=== PATIENT | female | born 1985 | race Hispanic/Latino ===

== ENCOUNTER → 2018-02-22 15:08 | Outpatient (CLI) | payer SELFPAY ==
--- NOTE | 2018-02-22 15:18 | RAD_ITS ---
STUDY: X-RAY - RIGHT SHOULDER REASON FOR EXAM: Female, 32 years old. Pain. TECHNIQUE: 4 view(s) of the shoulder. COMPARISON: None. FINDINGS: Normal glenohumeral articulation. Normal acromioclavicular joint. Normal acromion. Normal humeral head and visualized proximal humerus. The soft tissue structures are unremarkable. There is no demonstrated fracture. Normal visualized pulmonary apex. RAD/Shoulder min 2 Views IMPRESSION: Normal x-ray examination of the shoulder. Electronically Signed: Isaac Benedict MD at 23:49 EDT , Service support ,
== END ==
PROVIDERS: Referring Provider Physician Assistant; Visit Provider Physician Assistant
DX: M25.511 Pain in right shoulder (principal)
CPT/HCPCS: 73030

== ENCOUNTER → 2018-03-01 16:13 | Outpatient (CLI) | payer SELFPAY ==
--- NOTE | 2018-03-01 16:23 | MRI_ITS ---
STUDY: MRI RIGHT SHOULDER REASON FOR EXAM: Female, 32 years old. Right shoulder pain. Volleyball injury. Limited range of motion TECHNIQUE: Standardized fat and water weighted pulse sequences were obtained in all 3 orthogonal planes. COMPARISON: February 22, 2018 x-ray FINDINGS: Normal supraspinatus tendon. Normal infraspinatus tendon. Normal subscapularis tendon. Normal teres minor tendon. Normal supraspinatus muscle. Normal infraspinatus muscle. Normal subscapularis muscle. Normal teres minor muscle. Normal glenohumeral articulation. Normal humeral head and visualized proximal humerus. Normal biceps labral complex. Normal intracapsular long biceps tendon. Normal labrum. Normal capsulo- ligamentous complex. Normal rotator interval. There is mild osteoarthritis of the acromioclavicular articulation. There is a Type II morphology (curved) acromion, with a neutral orientation. There is mild fluid distention of the subacromial bursa, consistent with mild subacromial-subdeltoid bursitis. Normal visualized coracohumeral and coracoacromial ligaments. Normal quadrilateral space. Normal axillary space. Normal deltoid muscle. Normal trapezius muscle. MRI/Upper Ext Joint Only(Routine) IMPRESSION: No rotator cuff tear or tear of the labrum. Subacromial subdeltoid bursitis. Electronically Signed: Jerald Sanchez MD at 18:54 EDT , Service support ,
== END ==
PROVIDERS: Referring Provider Physician Assistant; Visit Provider Physician Assistant
DX: S40.011A Contusion of right shoulder, initial encounter (principal); X58.XXXA Exposure to other specified factors, initial encounter; Y93.9 Activity, unspecified; Y92.9 Unspecified place or not applicable; Y99.9 Unspecified external cause status
CPT/HCPCS: 73221

== ENCOUNTER → 2019-08-08 12:54 | Outpatient (CLI) | payer OTHER, SELFPAY ==
[2019-08-08 11:00] VITALS: BMI 26.1
--- NOTE | 2019-08-08 12:57 | RAD_ITS ---
STUDY: X-RAY - RIGHT FOOT CLINICAL: Female, 34 years old. right hallux deformity -- pain 1st toe TECHNIQUE: 3 view(s) of the foot. COMPARISON: None. FINDINGS: Normal talus, calcaneus, and tarsal bones. Normal visualized subtalar, talonavicular, calcaneocuboid, tarsal and tarsometatarsal articulations. There is mild bunion formation of the first metatarsal head. There is mild hallux valgus deformity of the first metatarsophalangeal joint. Normal tibial and fibular sesamoid bones. Normal interphalangeal joint of the great toe. Normal phalanges of the great toe. Normal second through fifth metatarsophalangeal joints. Normal interphalangeal joints and phalanges of the lesser toes. The soft tissue structures are unremarkable. RAD/Foot min 3 Views IMPRESSION: Mild first metatarsal head bunion. Mild hallux valgus deformity of the first metatarsophalangeal joint. Electronically Signed: Guille Sumner MD at 22:30 EDT , Service support ,
== END ==
PROVIDERS: PCP Internal Medicine; Referring Provider Internal Medicine; Visit Provider Internal Medicine
DX: M20.11 Hallux valgus (acquired), right foot (principal); M79.674 Pain in right toe(s)
CPT/HCPCS: 73630

== ENCOUNTER → 2020-04-29 | Outpatient (CLI) | payer OTHER, SELFPAY ==
[2020-04-29 08:30] VITALS: BMI 26.2
[2020-05-04 04:25] LABS: HPV APTIMA, High Risk Negative (Negative)
[2020-05-04 04:28] LABS: Gonococcus By Nucleic Acid AMP Negative (Negative)
[2020-05-04 04:29] LABS: Chlamydia By Nucleic Acid AMP Negative (Negative)
== END | disposition home or self-care (01) ==
LOC: LABSPEC 12:24
PROVIDERS: PCP Internal Medicine; Visit Provider Nurse Practitioner Women's Health
DX: Z12.4 Encounter for screening for malignant neoplasm of cervix (principal); Z11.3 Encounter for screening for infections with a predominantly sexual mode of transmission
CPT/HCPCS: 87491; 87591; 87624; 88175; G0145

== ENCOUNTER → 2020-05-12 09:04 | Outpatient (CLI) | payer OTHER, SELFPAY ==
[2020-04-29 08:30] VITALS: BMI 26.2
[2020-05-12 09:47] LABS: Absolute Lymphocyte Count 1.78 X10^3/uL (0.83-4.51); Absolute Neutrophil Count 3.3 X10^3/uL (2.0-7.7); Basophil# 0.03 X10^3/uL; Basophil% 0.5 % (0-1); Eosinophil# 0.31 X10^3/uL; Eosinophils% 5.3 % (0-5); Hematocrit 41.7 % (37-47); Hemoglobin 13.8 g/dL (12.0-15.0); Lymphocyte # 1.78 X10^3/ul (4.0); Lymphocyte % 30.2 % (19-41); Mean Corp Hgb Conc 33.1 g/dL (32-36); Mean Corpuscular Hgb 31.4 pg (27.0-32.0); Mean Corpuscular Volume 94.8 fL (81-99); Mean Platelet Vol. 9.9 fl (6.2-12.0); Monocyte# 0.42 X10^3/uL; Monocyte% 7.1 % (0-10); NRBC Flagged by Analyzer 0 % (0-5); Neutrophil # 3.34 X10^3/uL (2.7-7.7); Neutrophil % 56.7 % (47-70); Platelet Count 275 K/mm3 (150-450); RBC Distribution Width CV 12.1 % (11.6-14.6); RBC Distribution Width SD 42.5 fl (35.1-43.9); White Blood Count 5.9 K/mm3 (4.4-11.0)
[2020-05-12 10:24] LABS: AST(SGOT) 13 U/L (15-37); Alanine Aminotransfer ALT/SGPT 21 U/L (13-56); Albumin, Serum 3.8 g/dL (3.2-5.0); Alkaline Phosphatase 78 U/L (45-117); Anion Gap 6 (5-15); BUN 11 mg/dL (7-18); BUN/Creat Ratio 13.2 RATIO (10-20); Chloride 107 mmol/L (98-107); Cholesterol 161 mg/dL (200); Creatinine, Serum 0.83 mg/dL (0.55-1.02); EST Glomerular Filtration Rate 82 mL/min (>60); Est Glom Filt Rate - Afr Amer 99 mL/min (>60); Globulin 3.7 g/dL (2.2-4.2); Glucose 90 mg/dL (74-106); High Density Lipoprotein 80 mg/dL; Potassium 3.9 mmol/L (3.5-5.1); Protein, Total 7.5 g/dL (6.4-8.2); Sodium Level 140 mmol/L (136-145); Thyroid Stim Hormone (TSH) 2.27 uIU/mL (0.358-3.74); Triglycerides 59 mg/dL; Very Low Density Lipoprotein 12 mg/dL (5-40)
[2020-05-12 10:43] LABS: HIV - WCH Non-Reactive (Nonreactive)
[2020-05-14 02:39] LABS: Rapid Plasmin Reagin (RPR) NONREACTIVE (NONREACTIVE)
[2020-05-14 12:07] LABS: HCV Quant. RNA PCR HCV Not Detected IU/mL (.)
[2020-05-14 18:21] LABS: HSV 2 IgG < 0.91 index (0.00-0.90)
== END ==
PROVIDERS: PCP Internal Medicine; Referring Provider Nurse Practitioner Women's Health; Visit Provider Nurse Practitioner Women's Health
DX: Z00.00 Encounter for general adult medical examination without abnormal findings (principal); N97.0 Female infertility associated with anovulation; Z11.3 Encounter for screening for infections with a predominantly sexual mode of transmission; Z13.220 Encounter for screening for lipoid disorders; Z13.29 Encounter for screening for other suspected endocrine disorder; Z13.21 Encounter for screening for nutritional disorder
CPT/HCPCS: 36415; 80053; 80061; 82306; 84443; 85025; 86592; 86695; 86696; 86703; 87522

== ENCOUNTER 2021-06-02 16:17 | Outpatient (CLI) | payer BC, SELFPAY ==
[2021-06-02 17:32] LABS: Progesterone Level 0.76 ng/mL (See Comment)
== END 2021-06-02 23:59 | disposition short-term general hospital (02) ==
LOC: LAB 16:18
PROVIDERS: Visit Provider Obstetrics & Gynecology
DX: E28.9 Ovarian dysfunction, unspecified (principal)
CPT/HCPCS: 36415; 84144; 86900; 86901

== ENCOUNTER 2021-06-09 16:22 | Outpatient (CLI) | payer BC, SELFPAY ==
[2021-06-09 17:28] LABS: Progesterone Level 15.31 ng/mL (See Comment)
== END 2021-06-09 23:59 | disposition short-term general hospital (02) ==
LOC: WOBLAB 16:23
PROVIDERS: Visit Provider Obstetrics & Gynecology
DX: E28.8 Other ovarian dysfunction (principal); N97.0 Female infertility associated with anovulation
CPT/HCPCS: 36415; 84144

== ENCOUNTER 2022-01-21 18:46 | Emergency (ER) | payer OTHER, SELFPAY ==
[2022-01-21 18:47] VITALS: BP 121/81; PULSE 66; RESP 16; TEMP 36.3; O2SAT 100; BMI 23.3
[2022-01-21] MEDS: Diphth,Pertuss(Acell),Tet Vac 0.5 ML Vial IM (20:05)
[2022-01-21] MEDS: Lidocaine 1% (20 ml mdv) 20 ML Vial INFILT (20:05)
--- NOTE | 2022-01-21 21:24 | EDS_ITS ---
HPI History of Present Illness Chief Complaint: Laceration Detail of Chief Complaint: Laceration palm of right hand Informant: patient Occured/Mechanism Mechanism/Context: Yes injury Onset/Context/Timing Onset: Hours Context: Sudden Onset Timing: Continuous Quality of Pain: - (No pain) Location: Palm right hand proximal the MCP joint of the ring and little finger Current Severity: Mild Maximum Severity: Moderate Worsened by: Initial injury Relieved by: Nothing Associated Symptoms Associated Symptoms: Negative for Parasthesia, Weakness or Loss of Funtion Narrative Narrative: Patient is a 36-year-old [id number] woman who was opening a can with a manual can travel agent. The lid was stuck. She went to pull it and sustained a laceration of the palm of her hand. She denies paresthesia, anesthesia medics. She states her fingers are able to move. Tetanus is unknown. She is not on immunosuppressive meds. Tetanus Immunization: Unknown Prior similar symptoms: No Recent Illness/Hospitalization: No PFSH PFS Medical History none Home Medications multivitamin with minerals (Hair,Skin and Nails tablet) 1 tab PO DAILY 04/29/20 [History Last Taken Unknown] Allergy/AdvReac Type Severity Reaction Status Date / Time No Known Allergies Allergy Unverified 05/25/20 10:16 Social History household members: spouse number of children: 0 current occupational status: employed current occupation: [employer] history of recent travel: No sexually active: Yes Smoking Status: Never smoker alcohol intake: never substance use type: does not use what type of physical activity do you participate in: walking, bicycling and weight training seatbelt use: always do you feel safe at home: Yes additional social history: - Natalie JOHNSON [facility] ED Constitutional Constitutional ED: Denies chills or fever(s) Integumentary Reports other Details: Laceration as described narrative ; Denies Abrasions or rash Neurologic Neurologic: Denies paresthesias or weakness Hematologic/Lymphatic Hematologic/Lymphatic: Denies easy bleeding or easy bruising EXAM Physical Exam Const Vital Signs: 01/21/22 18:47 01/21/22 18:47 Temperature 97.3 F L 97.3 F L Temperature Source Temporal Temporal Pulse Rate 66 66 Respiratory Rate 16 16 Blood Pressure 121/81 H 121/81 H Blood Pressure Mean 94 94 Pulse Ox 100 100 Oxygen Delivery Method Room Air Room Air Positive well nourished and well developed General Appearance ED: well developed and NAD HEENT HEENT Narrative: Head is atraumatic no cephalic. Ears normal. Nares patent. Eyes PERRL and EOMs intact bilaterally Resp normal respiratory effort Cardio regular rate and regular rhythm Extremity full ROM; Negative for normal to inspection Extremity Narrative: There is a 2.8 cm laceration palm of right hand proximal to the MCP joint of the ring and little finger. The flexor digitorum superficialis and flexor digitorum profundus of the ring and little finger are function intact. Sensation is normal. Cap refill is normal. Median, radial and ulnar function intact. After wound was anesthetized the wound was explored there was no evidence of injury to the flexor tendons. Psych mental status grossly normal Skin General Skin Exam: Negative for petechiae Lesions: no lesions Rashes: no rashes Trauma: laceration MDM MDM MDM Narrative Medical decision making narrative: Patient has a gaping laceration which will require repair. It is beveled. Procedures Other Procedures Procedure(s): Patient was Nestabs by local infiltration. Wound was irrigated with 200 cc of normal saline. The wound was closed using 5-0 Ethilon. 5 simple interrupted sutures were placed with good cosmesis and hemostasis. Discharge Plan Triage Chief Complaint: Laceration ED Provider: Jake Mullen Dx/Rx/DC Orders Clinical Impression: Laceration of hand, right Instructions: ED Laceration, Hand: All Closures Prescriptions: No Action multivitamin with minerals [Hair,Skin and Nails] Tablet 1 tab PO DAILY Primary Care Provider: Nakul Clement Referrals: Nakul Clement DO [Primary Care Provider] - 10 Day for suture removal Activity Restrictions/Additional Instructions: 1. Keep wound clean and dry for the next 48 to 72 hours. 2. Clean wound with peroxide on a Q-tip 3 times a day then apply bacitracin ointment Disposition Disposition: Home, Self Care
[2022-01-21 21:34] VITALS: BP 118/74; PULSE 70; RESP 17; O2SAT 98
== END 2022-01-21 21:35 | disposition home or self-care (01) ==
PROVIDERS: Emergency Provider Emergency Medicine; PCP Family Medicine; Visit Provider Emergency Medicine
DX: S61.411A Laceration without foreign body of right hand, initial encounter (principal); W26.8XXA Contact with other sharp object(s), not elsewhere classified, initial encounter; Z23 Encounter for immunization
CPT/HCPCS: 12002; 90471; 90715; 99283

== ENCOUNTER → 2024-07-12 | Outpatient (CLI) | payer BC, SELFPAY ==
[2024-07-12 13:17] LABS: Vitamin B12 798 pg/mL (211-911); Vitamin D,25 Hydroxy 24.4 ng/mL
== END | disposition home or self-care (01) ==
LOC: BIMLAB 10:43
PROVIDERS: PCP Family Medicine; Referring Provider Family Medicine; Visit Provider Family Medicine
DX: R53.83 Other fatigue (principal)
CPT/HCPCS: 36415; 82306; 82607

== ENCOUNTER → 2024-11-12 | Outpatient (CLI) | payer BC, SELFPAY ==
[2024-11-12 17:36] LABS: Estradiol 44.6 pg/mL; Follicle Stimulating Hormone 9.2 mIU/mL; Luteinizing Hormone 9.7 mIU/mL
[2024-11-14 08:09] LABS: PROLACTIN 8.5 ng/mL (4.8-33.4)
== END | disposition home or self-care (01) ==
LOC: BIMLAB 14:21
PROVIDERS: PCP Family Medicine; Visit Provider Family Medicine
DX: E34.9 Endocrine disorder, unspecified (principal)
CPT/HCPCS: 36415; 82627; 82670; 83001; 83002; 84146; 84443; 82626

== ENCOUNTER → 2024-12-03 | Outpatient (CLI) | payer BC, SELFPAY ==
--- NOTE | 2024-12-03 19:02 | CT_ITS ---
PROCEDURE: ABDOMEN/PELVIS WITHOUT CONT 12/04/2024 REASON FOR EXAM: FLANK PAIN R/O STONE TECHNIQUE: ABDOMEN/PELVIS WITHOUT CONT Noncontrast technique limits evaluation of the abdominal and pelvic viscera. Coronal and Sagittal reconstruction series were provided. One or more dose reduction techniques were used (e.g., Automated exposure control, adjustment of the mA and/or kV according to patient size, use of iterative reconstruction technique). RADIATION DOSE SUMMARY: CTDlvol: mGy DLP: mGycm COMPARISON: none FINDINGS: Average sized liver showing homogenous parenchymal attenuation. No dilated intra or extra-hepatic biliary tracts. Gall bladder showing no radiodense calculi. No abnormal mural thickening. Clear surrounding fat planes with no sizeable collections. Normal unenhanced appearance of the pancreas with clear surrounding fat planes. The unenhanced spleen, adrenal glands, aorta and IVC are unremarkable. Both kidneys are of average size and showing smooth outline with preserved parenchymal thickness. No renal calculi. No hydronephrosis. Under distension of the urinary bladder showing minimal uniform mural thickening with no obvious masses. No obvious masses related to the pelvic viscera. Multiple pelvic phleboli. Small fat containing umbilical hernia The appendix appears unremarkable. No right iliac inflammatory changes. The examined ascending colon, the transverse colon, the descending colon & small bowel loops are unremarkable. The stomach is unremarkable. No ascites or free air. No obvious pathologically enlarged lymph nodes. Scanned osseous structures show no osseous destruction. Scanned lung bases show no obvious abnormalities. CT/Abdomen/Pelvis without Cont IMPRESSION: No renal calculi. No hydronephrosis. No acute pelvi-abdominal abnormalities, collections or free air. Reading [facility] [place] [id number]
== END | disposition home or self-care (01) ==
PROVIDERS: PCP Family Medicine; Referring Provider Family Medicine; Visit Provider Family Medicine
DX: R31.9 Hematuria, unspecified (principal)
CPT/HCPCS: 74176